=== PATIENT | male | born 1935 | race Caucasian/White ===

== ENCOUNTER 2021-03-22 13:07 | Emergency (ER) | payer MEDICARE | END 2021-03-22 17:30 | disposition home or self-care (01) | LOC: CSHERS 13:14 | DX: S51.812A Laceration without foreign body of left forearm, initial encounter (principal); S51.811A Laceration without foreign body of right forearm, initial encounter; S09.90XA Unspecified injury of head, initial encounter; N40.0 Benign prostatic hyperplasia without lower urinary tract symptoms; W05.0XXA Fall from non-moving wheelchair, initial encounter; G61.0 Guillain-Barre syndrome | CPT/HCPCS: 70450; 93005; 93010 ==